=== PATIENT | male | born 1995 | race Caucasian/White ===

== ENCOUNTER 2021-03-20 10:48 | Emergency (ER) | payer SELFPAY ==
[~2021-03-20] VITALS: Ht 172.7 cm; Wt 68.0 kg
[2021-03-20 11:18] VITALS: BP 116/69
== END 2021-03-20 11:34 | disposition home or self-care (01) ==
LOC: ER 10:48
DX: Z48.02 Encounter for removal of sutures (principal)
CPT/HCPCS: 99281